=== PATIENT | female | born 2000 | race Two or more races ===

== ENCOUNTER 2024-07-08 21:49 | Emergency (ER) | payer MEDICAID, SELFPAY ==
[2024-07-08 21:50] VITALS: BMI 22.3
--- NOTE | 2024-07-08 22:24 | EKG_ITS ---
[facility] Test Date: 2024-07-08 Pat Name: SHA ROMERO Department: Room: - Gender: Female Director Of Digital Platforms: : 2000 Requested By: ED Temporary Provider Order Number: [id number] Reading MD: ED Temporary Provider Measurements Intervals [place] Rate: 58 P: 49 RI: 178 QRS: 56 QRSD: 96 T: 47 QT: 410 QTc: 406 Interpretive Statements SINUS BRADYCARDIA POSSIBLE RIGHT VENTRICULAR CONDUCTION DELAY [RSR (QR) IN V1/V2] No previous ECG available for comparison /[email or web address]/[id number]
[2024-07-08 22:31] VITALS: BP 125/79; PULSE 60; RESP 18; TEMP 36.9; O2SAT 99
--- NOTE | 2024-07-08 23:11 | EDNOTE_ITS ---
<Statement entered by Geeta Stanton MD - 09/15/24 19:08> As co-signing physician, I was present and available for consult prn. I concur with the plan and care as documented by the midlevel provider. ED General RME/HPI General Chief complaint: Chest Pain Stated complaint: CHEST PAIN AND SOB SINCE YESTERDAY Time Seen by Provider: 07/08/24 22:41 Arrival date/time: 07/08/24 21:49 RME / HPI RME / HPI narrative: 24-year-old female presents to the ED with a complaint of chest pain and shortness of breath. She states the symptoms began yesterday. The pain comes on at rest, it is described as pressure it is nonradiating to 7/10 and it comes on every 2 hours and lasts approximately 1 minute. There are no exacerbating symptoms but states the pain is alleviated by drinking chamomile tea. She denies any nausea or vomiting, diarrhea or abdominal pain. She denies any upper respiratory complaints with cough, runny nose, nasal congestion, sore throat or ear pain. She also denies fever or chills. She was seen in a clinic in [place] approximately 1 week ago for a headache. She was told she had a slow heart rate at that time. Vital signs reveal a pulse of 60, respiratory rate of 18, temperature 98.4 and an O2 sat of 99% on room air. Related Data Allergies Allergy/AdvReac Type Severity Reaction Status Date / Time No Known Allergies Allergy Verified 07/08/24 21:50 Review of Systems Review of Systems Systems Reviewed: All systems reviewed, normal except as documented Past Medical History Social History SMOKING STATUS: Never smoker ED Exam Narrative Physical exam: Alert and oriented 24 year old female, no acute distress. Vital signs stable. Lungs are clear. RRR. Abdomen is soft and non-tender. No tenderness to the chest with AP or lateral chest compression. MAEW. Course Course Course Narrative: EKG - Sinus Twan with no T Wave or ST changes. XR Chest reveals no acute process. Urine HCG negative. She was given Viscous Lidocaine 15ml and Maalox 30ml PO Quality Measures none Orders Category Date Time Status EKG (ED ONLY) *Do not use* NOW Care 07/08/24 22:24 Completed EKG (ED Only) Stat Exams 07/08/24 22:24 Draft XR chest 2V Stat Exams 07/09/24 00:01 Completed HCG Qualitative,Urine Stat Lab 07/08/24 23:16 Completed Lidocaine 2% Viscous [Xylocaine 2% Viscous] Med 07/08/24 23:07 Discontinued 15 ml PO X1 ONE mg Hyd/Al Hyd/Ralph Susp [Maalox Susp] Med 07/08/24 23:07 Discontinued 30 ml PO X1 ONE Reevaluation(s) Reevaluation #1: Improved. Vital Signs Vital signs: Vital Signs Temperature 98.4 F 07/08/24 22:31 Pulse Rate 60 07/08/24 22:31 Respiratory Rate 18 07/08/24 22:31 Blood Pressure 125/79 07/08/24 22:31 Pulse Oximetry (%) 99 07/08/24 22:31 Oxygen Delivery Method Room Air 07/08/24 22:31 Discharge Plan Plan Patient Disposition: HOME (Self Care) Discharge Disposition comment: Stable and improved Prescriptions/Referrals Referrals: Luan Gutiérrez MD [Primary Care Provider] - In 1 week Problem List Clinical Impression: Chest pain, non-cardiac Patient/Caregiver Discharge Instructions Education Materials: ED Chest Pain, Uncertain Cause Additional Instructions: Follow-up with your primary care physician in 24 to 48 hours. Return to the ED for any new or worsening symptoms. Print Language: Bulgarian Stand Alone Forms: [employer] Award Info., Patient Portal Info Letter PA/MANAGER DATA Supervising Physician PA/TESFAYE Supervising Physician: Dr. Stanton MDM Narrative [facility] hospital course (for use when minimal MDM required): 24-year-old female presents to the ED with a complaint of chest pain and shortness of breath. She states the symptoms began yesterday. The pain comes on at rest, it is described as pressure it is nonradiating to 7/10 and it comes on every 2 hours and lasts approximately 1 minute. There are no exacerbating symptoms but states the pain is alleviated by drinking chamomile tea. She denies any nausea or vomiting, diarrhea or abdominal pain. She denies any upper respiratory complaints with cough, runny nose, nasal congestion, sore throat or ear pain. She also denies fever or chills. She was seen in a clinic in [place] approximately 1 week ago for a headache. She was told she had a slow heart rate at that time. Vital signs reveal a pulse of 60, respiratory rate of 18, temperature 98.4 and an O2 sat of 99% on room air. Alert and oriented 24 year old female, no acute distress. Vital signs stable. Lungs are clear. RRR. Abdomen is soft and non-tender. No tenderness to the chest with AP or lateral chest compression. MAEW. EKG - Sinus Twan with no T Wave or ST changes. XR Chest reveals no acute process. Urine HCG negative. She was given Viscous Lidocaine 15ml and Maalox 30ml PO Clinical Information Provided by: patient Medical Records reviewed None Meds/Rx considered, not ordered None Labs/Rad/Tests considered, not ordered None Chronic Illness/Social Conditions which may negatively complicate care or outcome(s)-explain: None or not applicable EKG Interpretation EKG #1: EKG Interpretation: As noted above. Labs Labs: Interpreted by [facility] Lab(s) Interpretation(s): As above. Imaging Imaging interpretation: other Imaging Interpretation(s): As above. Medication Administration(s) Medication Administration History Discontinued Medications Al Hydrox/Mg Hydrox/Simethicone (Mg Hyd/Al Hyd/Ralph (Maalox Reg) Susp 30 Ml Udc) 30 ml PO X1 ONE Stop: 07/08/24 23:08 Last Admin: 07/08/24 23:19 Dose: 30 ml Documented By: DREW Lidocaine HCl (Lidocaine Viscous 2% 15 Ml Udc) 15 ml PO X1 ONE Stop: 07/08/24 23:08 Last Admin: 07/08/24 23:19 Dose: 15 ml Documented By: OA As above.
[2024-07-08] MEDS: MG HYD/AL HYD/SIME (Maalox Reg) SUSP 30 ML UDC PO (23:19)
[2024-07-08] MEDS: LIDOCAINE VISCOUS 2% 15 ML UDC PO (23:19)
[2024-07-08 23:43] LABS: HCG Qualitative,Urine Negative
--- NOTE | 2024-07-09 00:01 | XR_ITS ---
Examination: PA lateral chest 2 views TECHNIQUE: Upright PA and lateral chest 2 views Exam date and time: July 09, 2024 at 0008 hours INDICATIONS: Chest pain shortness of breath beginning yesterday FINDINGS: Normal heart size. Lungs are clear. Mild thoracolumbar dextroscoliosis IMPRESSION: No active disease
[2024-07-09 01:41] VITALS: BP 117/75; PULSE 63; RESP 17; TEMP 37.1; O2SAT 99
[2024-07-09 02:36] VITALS: BP 118/78; PULSE 77
== END 2024-07-09 02:37 | disposition home or self-care (01) ==
PROVIDERS: Physician Assistant; Emergency Provider Emergency Medicine; PCP Family Medicine
DX: R07.89 Other chest pain (principal); R06.02 Shortness of breath; R00.1 Bradycardia, unspecified
CPT/HCPCS: 71046; 81025; 93005; 99283; J3490; A9270

== ENCOUNTER → 2024-12-27 | Outpatient (CLI) | payer MEDICAID, SELFPAY ==
--- NOTE | 2024-12-27 09:29 | XR_ITS ---
Examination: Abdomen AP single view Technique: AP portable supine abdomen, single view Exam date and time: December 27, 2024, 0959 hours INDICATIONS: Constipation 6 months. FINDINGS: Moderate stool throughout the colon No obstruction No free air IMPRESSION: Moderate stool throughout the colon
== END | disposition home or self-care (01) ==
LOC: CDIM 09:18
PROVIDERS: PCP Physician Assistant; Referring Provider Physician Assistant; Visit Provider Physician Assistant
DX: K59.09 Other constipation (principal)
CPT/HCPCS: 74018